=== PATIENT | male | born 2000 | race Caucasian/White ===

== ENCOUNTER 2021-10-20 23:01 | Inpatient (IN) | payer OTHER ==
[~2021-10-20 23:01] MED LIST: Iopamidol-370 76% 500 ML 1 ML ONE
[2021-10-20] MEDS ORDERED: ceFAZolin (BATCH) 2 GM/100 ML BAG ONE ×2 (23:08)
[2021-10-20] MEDS ORDERED: Boostrix 0.5 ML (Tdap) VIAL ONE (23:08)
[2021-10-20 23:37] LABS: Hemoglobin 15.4 g/dL (14.0-18.0); INR-International Normal Ratio 1.1; Mean Corpuscular HGB CONC 34.8 g/dL (32.0-36.0); Mean Corpuscular Volume 94.8 fL (78.0-98.0); Mean Platelet Volume 7.5 fL (7.4-10.4); PTT 25.2 sec (22.9-36.1); Platelet Count 328 thou/uL (130-400); Prothrombin Time 13.9 sec (12.0-14.7); RBC Distribution Width 11.4 % (11.5-14.5); Red Blood Cell (RBC) Count 4.69 mill/uL (4.00-5.20); White Blood Cell (WBC) Count 15.9 thou/uL (4.8-10.8)
[2021-10-20] MEDS ORDERED: Tranexamic Acid 1,000 MG/10 ML VIAL ONE (23:45)
[2021-10-20 23:46] LABS: Acetaminophen Less than 10.0 mcg/mL (10.0-30.0); Alcohol Less than 10 mg/dL (Less than 10); CK (CPK) 621 U/L (30-200); Lipase 60 U/L (8-78); Salicylate Less than 8.0 mg/dL (15.0-30.0)
[2021-10-20 23:47] LABS: ALT (SGPT) 139 U/L (8-55); AST (SGOT) 164 U/L (5-34); Albumin 4.2 g/dL (3.5-5.0); Alkaline Phosphatase 85 U/L (50-130); Anion Gap 14 mmol/L (10-20); BUN (Urea Nitrogen) 21 mg/dL (8.9-20.6); Bilirubin, Total 0.4 mg/dL (0.2-1.2); Calc. Creatinine Clearance 0 mL/min (70-130); Carbon Dioxide 23 mmol/L (22-29); Chloride 104 mmol/L (98-107); Globulin 2.5 g/dL (2.4-3.5); Glucose 139 mg/dL (70-105); Potassium 3.6 mmol/L (3.5-5.1); Protein, Total 6.7 g/dL (6.0-8.3); Sodium 137 mmol/L (136-145)
[2021-10-20] MEDS ORDERED: Lorazepam 2 MG/ML VIAL ONE (23:54)
[2021-10-21] LABS: Band 1 % (5-11); Eosinophils 2 % (0-10); Lymphocytes 42 % (28-48); MDiff Complete? YES; Monocytes 4 % (0-4); Neutrophil 46 % (31-61); Reactive Lymphocytes 4 % (0-10)
[2021-10-21] MEDS ORDERED: Fentanyl 100 MCG/2 ML VIAL ONE (00:23)
[2021-10-21] MEDS ORDERED: Dextrose 50% Abboject 50 ML SYRINGE SLOW IVP PRN (01:16)
[2021-10-21] MEDS ORDERED: hydrALAZINE 20 MG/ML VIAL SLOW IVP PRN (01:16)
[2021-10-21] MEDS ORDERED: Dextrose 5% in Water 1,000 ML IV PRN (01:16)
[2021-10-21] MEDS ORDERED: Ondansetron ODT 4 MG TAB PO PRN (01:16)
[2021-10-21 01:30] LABS: Bacteria/HPF None Seen HPF (None Seen); Bilirubin Negative (Negative); Blood, Urine Trace (Negative); Clarity Clear (Clear); Glucose, Urine (Dipstick) Normal (Negative); Ketone, Urine Negative (Negative); Leukocyte Negative Leu/uL (Negative); Nitrite Negative (Negative); Protein, Urine (Dipstick) 10 mg/dL (Neg-Trace); Squamous Epithelial None Seen HPF (0-3); Urobilinogen Normal mg/dL (Less than 2); WBC/HPF 0-3 HPF (0-3); pH, Urine 5.5 (5.0-9.0)
[2021-10-21] MEDS ORDERED: Sodium Chloride 0.9% 1,000 ML IV SCH (01:30)
[2021-10-21 01:33] LABS: Amphetamine Not Detected (NotDetected); Barbiturates Screen Not Detected (NotDetected); Benzodiazepine Screen Not Detected (NotDetected); Cocaine Metabolite Screen Not Detected (NotDetected); Methadone Not Detected (NotDetected); Methamphetamine Not Detected (NotDetected); Opiate Screen Not Detected (NotDetected); Oxycodone Screen Not Detected (NotDetected); Phencyclidine (PCP) Not Detected (NotDetected); Specific Gravity, Urine 1.046 (1.002-1.036); THC/Cannabinoid Screen Not Detected (NotDetected); Tricyclic Screen Not Detected (NotDetected)
[2021-10-21 02:14] LABS: Hemoglobin 14.9 g/dL (14.0-18.0); Mean Corpuscular HGB CONC 34.5 g/dL (32.0-36.0); Mean Corpuscular Hemoglobin 32.8 pg (25.0-35.0); Mean Corpuscular Volume 95.1 fL (78.0-98.0); Mean Platelet Volume 7.2 fL (7.4-10.4); Platelet Count 300 thou/uL (130-400); RBC Distribution Width 11.3 % (11.5-14.5); Red Blood Cell (RBC) Count 4.53 mill/uL (4.00-5.20); White Blood Cell (WBC) Count 22.6 thou/uL (4.8-10.8)
[2021-10-21 02:27] LABS: Lactic Acid 3.4 mmol/L (0.5-2.2)
[2021-10-21 02:31] VITALS: BMI 22.0
[2021-10-21 02:32] LABS: Band 15 % (5-11); Eosinophils 1 % (0-10); Lymphocytes 7 % (28-48); MDiff Complete? YES; Monocytes 9 % (0-4); Neutrophil 68 % (31-61)
[2021-10-21] MEDS ORDERED: Morphine 4 MG/ML VIAL SLOW IVP PRN (02:49)
[2021-10-21 02:55] LABS: Anion Gap 14 mmol/L (10-20); BUN (Urea Nitrogen) 19 mg/dL (8.9-20.6); CK (CPK) 1200 U/L (30-200); Calc. Creatinine Clearance 92 mL/min (70-130); Calcium 8.5 mg/dL (7.8-10.44); Carbon Dioxide 24 mmol/L (22-29); Chloride 103 mmol/L (98-107); Glucose 212 mg/dL (70-105); Magnesium 1.8 mg/dL (1.7-2.2); Potassium 3.3 mmol/L (3.5-5.1); Sodium 138 mmol/L (136-145)
[2021-10-21] MEDS ORDERED: Piperacillin/Tazobactam 3.375 GM in Sodium Chloride 0.9% 100 ML IVPB SCH ×3 (03:00→08:00)
[2021-10-21] MEDS: Ondansetron PF 4 MG/2 ML Vial IVP PRN ×2 (03:17→14:30)
[2021-10-21] MEDS: Acetaminophen 500 MG TAB PO SCH ×2 (03:51→06:12)
[2021-10-21 05:42] LABS: SARS-CoV-2 NAA Rapid Test Not Detected (NotDetected)
[2021-10-21 06:59] LABS: Phosphorus 2.9 mg/dL (2.3-4.7)
[2021-10-21 07:44] LABS: Lactic Acid 4.1 mmol/L (0.5-2.2)
[2021-10-21] MEDS ORDERED: Lactated Ringer's 1,000 ML IV SCH (08:00)
[2021-10-21] MEDS ORDERED: Acetaminophen/Codeine 30-300mg Tablet PO PRN ×2 (08:05)
[2021-10-21] MEDS: Sodium Chloride 0.9% 1,000 ML IV SCH ×3 (08:11→22:17)
[2021-10-21] MEDS: Famotidine/PF 20 mg/2ml Vial SLOW IVP SCH ×2 (08:11→20:42)
[2021-10-21] MEDS ORDERED: Magnesium 2 GM/50 ML(in water) 2 GM in Premix Bag 1 BAG IVPB SCH (08:15)
[2021-10-21] MEDS ORDERED: Potassium Phosphate 30 MMOL in Sodium Chloride 0.9% 250 ML 250 ML IVPB SCH (08:30)
[2021-10-21] MEDS: Acetaminophen 325 MG TAB PO SCH ×3 (08:42→20:42)
[2021-10-21] MEDS ORDERED: Prevnar 13-Val Conj/PF 0.5 ML SYRINGE IM ONE (09:00)
[2021-10-21] MEDS: Morphine 4 MG/ML VIAL SLOW IVP PRN ×2 (11:57→16:45)
[2021-10-21] MEDS: Clindamycin/D5W 900 MG in Premix Bag 1 BAG IVPB SCH ×2 (14:01→22:16)
[2021-10-21] MEDS ORDERED: Insulin Regular 300 UNITS/3 ML VIAL SC PRN (15:02)
[2021-10-22] MEDS: Acetaminophen 325 MG TAB PO SCH (02:21)
[2021-10-22 03:56] LABS: #Lymphocytes 0.8 thou/uL (1.20-3.40); #Monocytes 0.9 thou/uL (0.11-0.59); #Neutrophils 17.2 thou/uL (1.40-6.50); %Basophils 0.1 % (0.0-1.0); %Eosinophils 0.1 % (0.0-10.0); %Lymphocytes 4.3 % (28.0-48.0); %Monocytes 4.8 % (0.0-4.0); %Neutrophils 90.8 % (31.0-61.0); Hemoglobin 14.8 g/dL (14.0-18.0); Mean Corpuscular HGB CONC 35.1 g/dL (32.0-36.0); Mean Corpuscular Hemoglobin 33.9 pg (25.0-35.0); Mean Corpuscular Volume 96.5 fL (78.0-98.0); Mean Platelet Volume 7.4 fL (7.4-10.4); Platelet Count 230 thou/uL (130-400); RBC Distribution Width 11.4 % (11.5-14.5); Red Blood Cell (RBC) Count 4.38 mill/uL (4.00-5.20)
[2021-10-22 04:26] LABS: Anion Gap 13 mmol/L (10-20); BUN (Urea Nitrogen) 11 mg/dL (8.9-20.6); CK (CPK) 2199 U/L (30-200); Calc. Creatinine Clearance 163 mL/min (70-130); Calcium 9.1 mg/dL (7.8-10.44); Carbon Dioxide 22 mmol/L (22-29); Chloride 97 mmol/L (98-107); Glucose 137 mg/dL (70-105); Phosphorus 2.6 mg/dL (2.3-4.7); Potassium 4.2 mmol/L (3.5-5.1); Sodium 128 mmol/L (136-145)
[2021-10-22 04:42] VITALS: TEMP 98.8
== END 2021-10-22 05:15 | disposition short-term general hospital (02) | DRG 964 ==
LOC: ERS 23:01 → CCU 10-21 00:10
PROVIDERS: ADMIT Surgery; ATTEND Surgery
DX: S06.5X9A Traumatic subdural hemorrhage with loss of consciousness of unspecified duration, initial encounter (principal); S12.8XXA Fracture of other parts of neck, initial encounter; N17.9 Acute kidney failure, unspecified; S06.A0XA Traumatic brain compression without herniation, initial encounter; S27.0XXA Traumatic pneumothorax, initial encounter; E87.2 Acidosis; S02.609A Fracture of mandible, unspecified, initial encounter for closed fracture; J45.909 Unspecified asthma, uncomplicated; S42.112A Displaced fracture of body of scapula, left shoulder, initial encounter for closed fracture; S02.2XXA Fracture of nasal bones, initial encounter for closed fracture; S01.21XA Laceration without foreign body of nose, initial encounter; S01.511A Laceration without foreign body of lip, initial encounter; S02.5XXA Fracture of tooth (traumatic), initial encounter for closed fracture; T79.6XXA Traumatic ischemia of muscle, initial encounter; E83.39 Other disorders of phosphorus metabolism; E83.42 Hypomagnesemia; E87.6 Hypokalemia; S42.102A Fracture of unspecified part of scapula, left shoulder, initial encounter for closed fracture; S06.1X9A Traumatic cerebral edema with loss of consciousness of unspecified duration, initial encounter; Z20.822 Contact with and (suspected) exposure to COVID-19; V29.49XA Motorcycle driver injured in collision with other motor vehicles in traffic accident, initial encounter; Y92.89 Other specified places as the place of occurrence of the external cause
CPT/HCPCS: 36415; 36416; 70450; 70486; 71045; 71260; 72125; 74177; 76377; 80048; 80053; 80306; 80307; 81003; 81015; 82550; 83605; 83690; 83735; 84100; 85025; 85610; 85730; 86850; 86900; 86901; 90715; G0390; J0690; J1815; J2060; J2270; J2405; J2543; J3010; J3475; J3490; J7050; J7120; Q9967; S0028; U0002